=== PATIENT | male | born 1945 | race Caucasian/White ===

== ENCOUNTER → 2018-03-11 | Outpatient (CLI) | payer BC ==
[~2018-03-11] VITALS: Ht 175.3 cm; Wt 74.3 kg
[~2018-03-11] MED LIST: ADULT LOW DOSE81 MG PO; ALEVE220 M1 PO; ALPHA LIPOIC AC50 M1 PO; AMBIEN 10 MG TA10 MG PO; ANDRODERM1 EAC2 TOP; CIALIS5 MG PO; COD LIVER OIL1 EAC4 PO; DICLOFENAC PO; ECHINACEA167 MG PO; FISH OIL 1,0001 EAC5 PO; GARLIC OIL1 EAC1 PO; MAGNES PO; MULTIVITAMINS PO; OMEGA 3-6-9 CO1 EACH PO; RESTORIL15 MG PO; TRAZODONE HCL50 MG PO; VITAMINC500 PO; XANAX 0.5 MG0.5 M1 PO; ZINC CHELATE100 MG PO
[2018-03-11 10:39] VITALS: BP 130/72
== END ==
LOC: SEN 08:16
DX: N40.1 Benign prostatic hyperplasia with lower urinary tract symptoms (principal); F41.1 Generalized anxiety disorder; G47.00 Insomnia, unspecified; F32.9 Major depressive disorder, single episode, unspecified

== ENCOUNTER → 2018-03-15 | Outpatient (CLI) | payer OTHER, BC ==
[~2018-03-15] VITALS: Ht 180.3 cm; Wt 74.6 kg
[2018-03-15 09:02] VITALS: BP 123/70
[2018-03-15 11:03] LABS: URINE BILIRUBIN NEGATIVE (Negative); URINE BLOOD NEGATIVE (Negative); URINE CLARITY CLEAR; URINE COLOR YELLOW; URINE GLUCOSE-RANDOM* NEGATIVE (Negative); URINE KETONES NEGATIVE (Negative); URINE LEUKOCYTES-REFLEX NEGATIVE (Negative); URINE NITRITE-REFLEX NEGATIVE (Negative); URINE PROTEIN (DIPSTICK) NEGATIVE (Negative); URINE UROBILINOGEN 0.2 E.U./dl (0.2-1.0)
[2018-03-15 11:06] LABS: ABSOLUTE NEUTROPHILS 1.4 thou/uL (1.4-8.2); BASOPHILS 1.3 % (0.0-2.0); EOSINOPHILS 1.1 % (0.0-3.0); HEMATOCRIT 40.3 % (42.0-52.0); LYMPHOCYTES 41.4 % (24.0-44.0); MCH 32.3 pg (26.0-34.0); MCHC 34.8 g/dL (28.0-37.0); MCV 92.8 fL (80.0-100.0); MONOCYTES 7.8 % (1.0-8.0); PLATELET COUNT 229 thou/uL (150-400); POLYS 48.4 % (36.0-66.0); RBC 4.34 mil/uL (4.50-6.00); RDW 12.3 % (10.5-14.5)
[2018-03-15 11:18] LABS: ALBUMIN 3.9 g/dL (3.4-5.0); ANION GAP 7 mmol/L (7-16); BUN 16 mg/dL (7-18); CALCIUM 9.4 mg/dL (8.5-10.1); CHLORIDE 102 mmol/L (98-107); CHOLESTEROL 164 mg/dL (<200); CO2 27 mmol/L (21-32); CREATININE 0.8 mg/dL (0.7-1.3); DIRECT BILIRUBIN 0.2 mg/dL (<0.1-0.3); GLUCOSE 93 mg/dL (74-106); HDL CHOLESTEROL 79 mg/dL (>40); LDL CHOLESTEROL 81 mg/dL (<100); MAGNESIUM 2.2 mg/dL (1.8-2.4); POTASSIUM 4.4 mmol/L (3.5-5.1); SGOT 26 U/L (15-37); SGPT 30 U/L (30-65); SODIUM 136 mmol/L (136-145); TC:HDL 2.1 Ratio (Not establshd); TOTAL BILIRUBIN 1.2 mg/dL (<0.1-1.0); TOTAL PROTEIN 7.5 g/dL (6.4-8.2); TRIGLYCERIDE 23 mg/dL (<150); VLDL 5 mg/dL (<40)
[2018-03-15 12:03] LABS: TSH 1.407 uIU/mL (0.358-3.740)
[2018-03-15 18:06] LABS: PSA TOTAL 0.9 ng/mL (0.0-4.0); TESTOSTERONE* 478 ng/dL (264-916)
[2018-03-15 22:05] LABS: ESTIMATED AVERAGE GLUCOSE 88 mg/dL (()); GLYCOHEMOGLOBIN (HGB A1C) 4.7 % (4.8-5.6)
[2018-03-17 12:10] LABS: FREE PSA 0.19 ng/mL; FREE PSA RATIO 21.1 % (())
== END ==
LOC: SEN 08:20
PROVIDERS: Nurse Practitioner Family
DX: Z00.01 Encounter for general adult medical examination with abnormal findings (principal); I71.4 Abdominal aortic aneurysm, without rupture; M19.90 Unspecified osteoarthritis, unspecified site; I51.9 Heart disease, unspecified; N40.0 Benign prostatic hyperplasia without lower urinary tract symptoms; G47.33 Obstructive sleep apnea (adult) (pediatric); Z83.3 Family history of diabetes mellitus; Z82.49 Family history of ischemic heart disease and other diseases of the circulatory system; Z87.891 Personal history of nicotine dependence; Z79.899 Other long term (current) drug therapy

== ENCOUNTER → 2018-03-15 | Outpatient (CLI) | payer OTHER, BC ==
--- NOTE | ~2018-03-15 | EKG ---
[address] [address] ELECTROCARDIOGRAM REPORT Name: BARBARA NOE Room #: CLARI Guerrero#: [id number] Admission: 03/15/18 Attend Phys: YAMILET Rubio Discharge: Date of : 41 Report #: [id number] THIS REPORT FOR: //name// [facility] Test Date: 2018-03-15 Test Time: 12:49:19 Pat Name: BARBARA NOE Department: Room: Gender: [employer]visor [employer]: Ke POTTS : 1945 Requested By: Aileen Awad Order Number: [id number] MD: Luis A Howard Measurements Intervals [place] Rate: 46 P: 12 NC: 178 QRS: -43 QRSD: 138 T: 37 QT: 499 QTc: 437 Interpretive Statements Sinus bradycardia Left bundle branch block Compared to ECG 05/09/2005 00:14:09 Left bundle-branch block now present Atrial flutter no longer present Poor R-wave progression no longer present Electronically Signed On 03-15-2018 13:31:16 CDT by Luis A Howard [email or web address] <ELECTRONICALLY SIGNED> By: Luis A Howard MD 03/15/18 1331 1249 1249 Luis A Howard MD /EPI
== END ==
LOC: ULTRA 11:34
DX: Z13.6 Encounter for screening for cardiovascular disorders (principal); I44.7 Left bundle-branch block, unspecified; I71.4 Abdominal aortic aneurysm, without rupture; R00.1 Bradycardia, unspecified; Z87.891 Personal history of nicotine dependence